=== PATIENT | male | born 1955 | race Hispanic/Latino ===

== ENCOUNTER 2016-08-23 19:06 | Emergency (ER) | payer SELFPAY ==
[2016-08-23 20:14] LABS: #Basophils 0.1 thou/uL (0.0-0.2); #Eosinphils 0.1 thou/uL (0.0-0.7); #Lymphocytes 1.7 thou/uL (1.20-3.40); #Monocytes 0.9 thou/uL (0.11-0.59); #Neutrophils 4.5 thou/uL (1.40-6.50); %Basophils 1.6 % (0.0-1.0); %Lymphocytes 23.5 % (21.0-51.0); %Monocytes 12.3 % (0.0-10.0); %Neutrophils 60.5 % (42.0-75.0); Hemoglobin 13.9 g/dL (14.0-18.0); Mean Corpuscular HGB CONC 34.2 g/dL (32.0-36.0); Mean Corpuscular Hemoglobin 28.2 pg (27.0-31.0); Mean Corpuscular Volume 82.5 fl (80.0-94.0); Platelet Count 189 thou/uL (130-400); RBC Distribution Width 11.2 % (11.5-14.5); Red Blood Cell (RBC) Count 4.91 mill/uL (4.70-6.10); White Blood Cell (WBC) Count 7.4 thou/uL (4.8-10.8)
[2016-08-23 20:29] LABS: ALT (SGPT) 23 U/L (0-55); AST (SGOT) 19 U/L (5-34); Albumin 4.2 g/dL (3.4-4.8); Alkaline Phosphatase 83 U/L (40-150); Anion Gap 19 mmol/L (10-20); BUN (Urea Nitrogen) 14 mg/dL (8.4-25.7); Bilirubin, Total 0.3 mg/dL (0.2-1.2); Calc. Creatinine Clearance 0 mL/min (70-130); Calcium 9.5 mg/dL (7.8-10.44); Carbon Dioxide 23 mmol/L (23-31); Chloride 101 mmol/L (98-107); Estimated GFR-MDRD 90; Globulin 2.9 g/dL (2.4-3.5); Glucose 109 mg/dL (80-115); Potassium 3.3 mmol/L (3.5-5.1); Protein, Total 7.1 g/dL (5.8-8.1); Sodium 140 mmol/L (136-145)
[2016-08-23 20:31] LABS: CKMB 1.3 ng/mL (0-6.6); Troponin I Less than 0.010 ng/mL (< 0.028)
--- NOTE | 2016-08-23 20:45 | RAD ---
PORTABLE CHEST ONE VIEW: 08/23/16 at 7:50 p.m. HISTORY: Chest palpitations. FINDINGS: Comparison made to exam of 07/11/13. The heart size is upper limits of normal. The lungs are expanded without focal areas of consolidatio n or pneumothorax, vanessa pulmonary edema or pleural effusions. IMPRESSION: No radiographic evidence of acute cardiopulmonary process. POS: [facility]
--- NOTE | 2016-08-23 21:05 | ERRECORD ---
[facility] EMERGENCY RECORD HPI PALPITATIONS (20:29 BPIC) CHIEF COMPLAINT: Patient presents for evaluation of palpitations. HISTORIAN: History provided by patient, one hour prior to arrival in the ED, the patient had palpitations and sweating for 15 minutes similar to an episode that he had 2 years ago when he had to get stents placed in his heart. symptoms have currently resolved. pt takes aspirin daily. ROS (19:20 BPIC) CONSTITUTIONAL: Negative constitutional review of systems, Historian denies chills, denies fever. EYES: Negative eye review of systems. ENT: Negative ears, nose, throat review of systems. CARDIOVASCULAR: Historian reports palpitations, denies chest pain. RESPIRATORY: Negative respiratory review of systems, Historian denies cough, denies shortness of breath. GI: Negative gastrointestinal review of systems, Historian denies abdominal pain, denies constipation, denies diarrhea. SKIN: Negative skin review of systems. NEUROLOGIC: Negative neurologic review of systems. ENDOCRINE: Negative endocrine review of systems. HEMO/LYMPHATIC: Normal hematologic/lymphatic system review. PSYCHIATRIC: Negative psychiatric review of systems. NOTES: All other ROS is negative except as listed in HPI. PAST MEDICAL HISTORY MEDICAL HISTORY: Past medical history includes cardiac history, coronary artery disease, Past medical history includes history of diabetes, endocrine disease. hypothyroidism, Past medical history includes history of hypertension. (SunAug 23, 2016 19:17 MDEB) MALE SURGICAL HISTORY: L INGUINAL HERNIA CARDIAC STENTS. (SunAug 23, 2016 19:17 MDEB) SOCIAL HISTORY: Patient drinks socially, Patient denies drug use, Patient has no smoking history. (SunAug 23, 2016 19:17 MDEB) NOTES: I have reviewed and agree with the PMH/PSxH/FamHx/SocHx obtained by the nurse. (19:20 BPIC) KNOWN ALLERGIES No Known Allergies (Unconfirmed) No Known Drug Allergies (Unconfirmed) CURRENT MEDICATIONS No recorded medications VITAL SIGNS (19:13 MDEB) VITAL SIGNS: BP: 170/72, Pulse: 85, Resp: 20, Temp: 97.6 (Tympanic), Pain: 0, O2 sat: 97 on Room Air, Time: 08/23/2016 19:13. &a-1R&a+25V*p+0X*h2461L*c202B*c15G*c2P*p-0X&a-25V&a+1R Name: Ashwin Juarez : 1955 M61 MedRec: [id number] AcctNum: [id number] Prepared: SunAug 23, 2016 21:22 by Interface Page 1 of 3 pMD [facility] EMERGENCY RECORD PHYSICAL EXAM (19:20 BPIC) CONSTITUTIONAL: Vital signs reviewed, Patient appears non toxic, Patient alert and oriented to person, place and time, Pt is in no apparent distress. HEAD: Head exam included findings of head atraumatic, normocephalic. EYES: Eye exam included findings of eyelids normal to inspection, Pupils equally round and reactive to light, Extraocular muscles intact. ENT: ENT exam normal, Nose exam normal, no nasal deformity, no bleeding from nares, Pharynx exam normal, Mouth exam normal, mucous membranes moist. NECK: Neck exam included findings of normal range of motion, Trachea midline. RESPIRATORY CHEST: Respiratory and chest exam normal, Breath sounds clear, No wheezing, No rales, Chest exam included findings of chest movement symmetrical, Chest expansion equal. CARDIOVASCULAR: Cardiovascular assessment normal, Cardiovascular exam included findings of heart rate regular rate and rhythm, Heart sounds normal. ABDOMEN MALE: Abdominal exam included findings of abdomen nontender, Bowel sounds normal, no mass, no pulsatile masses, no peritoneal signs, no rigidity, no guarding, no rebound. BACK: Back exam included findings of normal inspection, range of motion normal, no costovertebral angle tenderness. UPPER EXTREMITY: Upper extremity exam included findings of inspection normal, Range of motion normal. LOWER EXTREMITY: Lower extremity exam included findings of inspection normal, Range of motion normal. NEURO: Neuro exam findings include patient oriented to person, place and time, Speech normal, no focal motor deficits, no focal sensory deficits. SKIN: Skin exam included findings of skin warm, dry, and normal in color. LYMPHATIC: Lymphatic exam normal. PSYCHIATRIC: Psychiatric exam included findings of patient oriented to person place and time, Normal affect. EKG INTERPRETATION (20:36 BPIC) 12 LEAD EKG INTERPRETATION: 12 lead EKG shows normal sinus rhythm, Interpretation: normal EKG, Conduction normal, ST segments normal, T waves normal, Clinical impression: Normal EKG. DOCTOR NOTES (20:43 BPIC) NOTES: Patient presents with atypical chest pain. Patient currently improved. Risk factors for PE, ACS, dissection all evaluated. Based on the history, exam, risk factor evaluation, and testing done here, I feel that patient is at low risk for dangerous etiologies such as PE, PTX, ACS, dissection. Other DDX considered &a-1R&a+25V*p+0X*i8649H*c202B*c15G*c2P*p-0X&a-25V&a+1R Name: Ashwin Juarez : 1955 M61 MedRec: [id number] AcctNum: [id number] Prepared: SunAug 23, 2016 21:22 by Interface Page 2 of 3 pMD [facility] EMERGENCY RECORD includes pericarditis, pleurisy, costochondritis, chest wall pain, anxiety, GERD, hiatal hernia. I have encouraged the patient to arrange quick follow up and have advised of warning signs that should prompt more immediate return for evaluation. PROBLEM LIST No recorded problems DIAGNOSIS (20:43 BPIC) FINAL: PRIMARY: Palpitations. PRESCRIPTION No recorded prescriptions DISPOSITION PATIENT: Disposition Type: Discharge, Disposition: *Discharge Home, Condition: Good. (20:43 BPIC) Patient left the department. (20:52 MDEB) Villatoro: BPIC=MD Kelly, Skip GOODEEB=EDGARDO Hamlin, Vandana &a-1R&a+25V*p+0X*e4434G*c202B*c15G*c2P*p-0X&a-25V&a+1R Name: Ashwin Juarez : 1955 M61 MedRec: [id number] AcctNum: [id number] Prepared: SunAug 23, 2016 21:22 by Interface Page 3 of 3 pMD MTDD
--- NOTE | 2016-08-23 21:09 | PICIS ---
[facility] EMERGENCY RECORD TRIAGE (SunAug 23, 2016 19:17 MDEB) PATIENT: NAME: Ashwin Juarez, AGE: 61, GENDER: male, : Sun1955, TIME OF GREET: SunAug 23, 2016 19:07, PREFERRED LANGUAGE: [place], RACE: or , ETHNICITY: or , ECODE BILLING MAP: [facility], Zip Code: [address], KG WEIGHT: 86.18, PHONE: , , , PERSON ID: [id number], PCP: Misael GIFFORD. (SunAug 23, 2016 19:17 MDEB) TRIAGE NOTES: PALPITATIONS WITH DIAPHORESIS, WEAKNESS. (SunAug 23, 2016 19:17 MDEB) COMPLAINT: NOT FEELING WELL. (SunAug 23, 2016 19:17 MDEB) ADMISSION: URGENCY: 3 Urgent, ADMISSION SOURCE: Home, TRANSPORT: Walk-in, BED: TRIAGE. (SunAug 23, 2016 19:17 MDEB) TRIAGE SCREENING: Patient denies suicidal ideation, Patient denies presence of domestic violence. (SunAug 23, 2016 19:17 MDEB) PROVIDERS: TRIAGE NURSE: Vandana Hamlin RN. (SunAug 23, 2016 19:17 MDEB) VITAL SIGNS: BP 170/72, Pulse 85, Resp 20, Temp 97.6, (Tympanic), Pain 0, O2 Sat 97, on Room Air, Time 08/23/2016 19:13. (19:13 MDEB) PREVIOUS VISIT ALLERGIES: No Known Drug Allergies. (SunAug 23, 2016 19:17 MDEB) KNOWN ALLERGIES No Known Allergies (Unconfirmed) No Known Drug Allergies (Unconfirmed) CURRENT MEDICATIONS No recorded medications VITAL SIGNS (19:13 MDEB) VITAL SIGNS: BP: 170/72, Pulse: 85, Resp: 20, Temp: 97.6 (Tympanic), Pain: 0, O2 sat: 97 on Room Air, Time: 08/23/2016 19:13. NURSING ASSESSMENT: CARDIOVASCULAR (19:31 MDEB) CONSTITUTIONAL: Patient arrives ambulatory, Gait steady, History obtained from patient, Patient appears comfortable, Patient cooperative, Patient alert, Oriented to person, place and time, Skin warm, Skin dry, Skin normal in color, Mucous membranes pink, Mucous membranes moist, Patient is well-groomed, Patient complains of PALPITATIONS WITH DIAPHORESIS, WEAKNESS. PAIN: Patient rates pain as 0 out of 10. CARDIOVASCULAR: Cardiovascular assessment findings include heart rate normal, Heart rhythm, sinus arrhythmia, Associated with diaphoresis, currently resolved, Associated with weakness, CONTINUES AT THIS TIME. RESPIRATORY/CHEST: Breath sounds clear, Respiratory assessment findings include respiratory effort easy, Respirations regular, Conversing normally, Neck and chest exam findings include trachea midline, Chest expansion equal, Chest movement symmetrical. NOTES: Emotional support needed and given, Patient tolerated &a-1R&a+25V*p+0X*w6548B*c202B*c15G*c2P*p-0X&a-25V&a+1R Name: Ashwin Juarez : 1955 M61 MedRec: [id number] AcctNum: [id number] Prepared: SunAug 23, 2016 21:28 by Interface Page 1 of 7 pMD [facility] EMERGENCY RECORD procedure well. SAFETY: Side rails up, Cart/Stretcher in lowest position, Family at bedside, Call light within reach, Hospital ID band on. NURSING PROCEDURE: DISCHARGE NOTE (20:48 MDEB) DISCHARGE: Patient discharged to home, ambulating without assistance, family driving, accompanied by other family member, Summary of Care printed/ provided, Patient requested and was provided an electronic copy of Discharge Instructions, Transition record given to patient, Discharge instructions given to patient, Discharge instructions given to SON, Above person(s) verbalized understanding of discharge instructions and follow-up care, Patient treated and evaluated by physician. BELONGINGS: Belongings remain with patient, Valuables remain with patient. NOTES: Emotional support needed and given, Patient tolerated procedure well. NURSING PROCEDURE: EKG CHART (19:41 MDEB) PATIENT IDENTIFIER: Patient actively involved in identification process, Patient's identity verified by patient stating name, Patient's identity verified by hospital ID bracelet. EKG: EKG indicated for complaint of palpitations, 12 lead EKG performed on the left chest. FOLLOW-UP: After procedure, EKG for interpretation given to Dr. CLAROS. NOTES: Emotional support needed and given, Patient tolerated procedure well. ORDER DETAILS Order Name: B type Natriuretic Peptide, Status: Active, Time: 19:43 08/23/2016, User: BPIC, - Ordered for: MD Claros Bryan, - Entered by: MD Claros Bryan - [facility] Aug 23, 2016 19:43, - Quantity: 1, Order Name: Cardiac Profile w/CKMB & Troponin - I, Status: Active, Time: 19:43 08/23/2016, User: BPIC, - Ordered for: MD Claros Bryan, - Entered by: MD Claros Bryan - [facility] Aug 23, 2016 19:43, - Quantity: 1, Order Name: CBC with Differential, Status: Active, Time: 19:43 08/23/2016, User: BPIC, - Ordered for: MD Claros Bryan, - Entered by: MD Claros Bryan - [facility] Aug 23, 2016 19:43, - Quantity: 1, Order Name: Comprehensive Metabolic Panel, Status: Active, Time: 19:43 08/23/2016, User: BPIC, - Ordered for: MD Claros Bryan, - Entered by: MD Claros Bryan - [facility] Aug 23, 2016 19:43, &a-1R&a+25V*p+0X*c4568S*c202B*c15G*c2P*p-0X&a-25V&a+1R Name: Ashwin Juarez : 1955 M61 MedRec: [id number] AcctNum: [id number] Prepared: SunAug 23, 2016 21:28 by Interface [address] [place] [address] EMERGENCY RECORD - Quantity: 1, Order Name: EKG 12 Lead in Emergency Room, Status: Active, Time: 19:43 08/23/2016, User: BPIC, - Ordered for: MD Claros Bryan, - Entered by: MD Claros Bryan - [facility] Aug 23, 2016 19:43, - Quantity: 1, Order Name: SALINE LOCK, Status: Done, Time: 19:44 08/23/2016, User: HIRO, - Ordered for: MD Claros Bryan, - Entered by: MD Claros Bryan - [facility] Aug 23, 2016 19:43, - Quantity: 1, Order Name: XR Chest 1 View Portable, Status: Active, Time: 19:43 08/23/2016, User: BPIC, - Ordered for: MD Claros Bryan, - Entered by: MD Claros Bryan - SunAug 23, 2016 19:43, - Quantity: 1. HPI PALPITATIONS (20:29 BPIC) CHIEF COMPLAINT: Patient presents for evaluation of palpitations. HISTORIAN: History provided by patient, one hour prior to arrival in the ED, the patient had palpitations and sweating for 15 minutes similar to an episode that he had 2 years ago when he had to get stents placed in his heart. symptoms have currently resolved. pt takes aspirin daily. ROS (19:20 BPIC) CONSTITUTIONAL: Negative constitutional review of systems, Historian denies chills, denies fever. EYES: Negative eye review of systems. ENT: Negative ears, nose, throat review of systems. CARDIOVASCULAR: Historian reports palpitations, denies chest pain. RESPIRATORY: Negative respiratory review of systems, Historian denies cough, denies shortness of breath. GI: Negative gastrointestinal review of systems, Historian denies abdominal pain, denies constipation, denies diarrhea. SKIN: Negative skin review of systems. NEUROLOGIC: Negative neurologic review of systems. ENDOCRINE: Negative endocrine review of systems. HEMO/LYMPHATIC: Normal hematologic/lymphatic system review. PSYCHIATRIC: Negative psychiatric review of systems. NOTES: All other ROS is negative except as listed in HPI. PAST MEDICAL HISTORY MEDICAL HISTORY: Past medical history includes cardiac history, coronary artery disease, Past medical history includes history of diabetes, endocrine disease. hypothyroidism, Past medical history includes history of hypertension. (SunAug 23, 2016 19:17 MDEB) &a-1R&a+25V*p+0X*o0946I*c202B*c15G*c2P*p-0X&a-25V&a+1R Name: Ashwin Juarez : 1955 M61 MedRec: [id number] AcctNum: [id number] Prepared: SunAug 23, 2016 21:28 by Interface Page 3 of 7 pMD [facility] EMERGENCY RECORD MALE SURGICAL HISTORY: L INGUINAL HERNIA CARDIAC STENTS. (SunAug 23, 2016 19:17 MDEB) SOCIAL HISTORY: Patient drinks socially, Patient denies drug use, Patient has no smoking history. (SunAug 23, 2016 19:17 MDDANIA) NOTES: I have reviewed and agree with the PMH/PSxH/FamHx/SocHx obtained by the nurse. (19:20 BPIC) PHYSICAL EXAM (19:20 BPIC) CONSTITUTIONAL: Vital signs reviewed, Patient appears non toxic, Patient alert and oriented to person, place and time, Pt is in no apparent distress. HEAD: Head exam included findings of head atraumatic, normocephalic. EYES: Eye exam included findings of eyelids normal to inspection, Pupils equally round and reactive to light, Extraocular muscles intact. ENT: ENT exam normal, Nose exam normal, no nasal deformity, no bleeding from nares, Pharynx exam normal, Mouth exam normal, mucous membranes moist. NECK: Neck exam included findings of normal range of motion, Trachea midline. RESPIRATORY CHEST: Respiratory and chest exam normal, Breath sounds clear, No wheezing, No rales, Chest exam included findings of chest movement symmetrical, Chest expansion equal. CARDIOVASCULAR: Cardiovascular assessment normal, Cardiovascular exam included findings of heart rate regular rate and rhythm, Heart sounds normal. ABDOMEN MALE: Abdominal exam included findings of abdomen nontender, Bowel sounds normal, no mass, no pulsatile masses, no peritoneal signs, no rigidity, no guarding, no rebound. BACK: Back exam included findings of normal inspection, range of motion normal, no costovertebral angle tenderness. UPPER EXTREMITY: Upper extremity exam included findings of inspection normal, Range of motion normal. LOWER EXTREMITY: Lower extremity exam included findings of inspection normal, Range of motion normal. NEURO: Neuro exam findings include patient oriented to person, place and time, Speech normal, no focal motor deficits, no focal sensory deficits. SKIN: Skin exam included findings of skin warm, dry, and normal in color. LYMPHATIC: Lymphatic exam normal. PSYCHIATRIC: Psychiatric exam included findings of patient oriented to person place and time, Normal affect. EVENTS TRANSFER: Triage to Emergency Triage. (SunAug 23, 2016 19:17 MDEB) Emergency Triage to Main ED -05. (19:17 MDEB) Removed from Emergency Main ED -05. (20:52 MDEB) &a-1R&a+25V*p+0X*g3628G*c202B*c15G*c2P*p-0X&a-25V&a+1R Name: Ashwin Juarez : 1955 [facility] [place] MedRec: [id number] AcctNum: [id number] Prepared: SunAug 23, 2016 21:28 by Interface Page 4 of 7 pMD [facility] EMERGENCY RECORD EKG INTERPRETATION (20:36 BPIC) 12 LEAD EKG INTERPRETATION: 12 lead EKG shows normal sinus rhythm, Interpretation: normal EKG, Conduction normal, ST segments normal, T waves normal, Clinical impression: Normal EKG. DOCTOR NOTES (20:43 BPIC) NOTES: Patient presents with atypical chest pain. Patient currently improved. Risk factors for PE, ACS, dissection all evaluated. Based on the history, exam, risk factor evaluation, and testing done here, I feel that patient is at low risk for dangerous etiologies such as PE, PTX, ACS, dissection. Other DDX considered includes pericarditis, pleurisy, costochondritis, chest wall pain, anxiety, GERD, hiatal hernia. I have encouraged the patient to arrange quick follow up and have advised of warning signs that should prompt more immediate return for evaluation. PROBLEM LIST No recorded problems DIAGNOSIS (20:43 BPIC) FINAL: PRIMARY: Palpitations. DISPOSITION PATIENT: Disposition Type: Discharge, Disposition: *Discharge Home, Condition: Good. (20:43 BPIC) Patient left the department. (20:52 MDEB) INSTRUCTION (20:44 BPIC) DISCHARGE: PALPITATIONS. SPECIAL: Thank you for choosing [facility] for your care today! Please follow up with your doctor in the next 2-3 days. Return to the emergency department with any emergent or worsening concerns. God Bless you!. PRESCRIPTION No recorded prescriptions IMAGING *EKG: Image captured from scanner. (20:16 MDEB) *DISCHARGE INSTRUCTIONS RECEIPT: Image captured from scanner. (20:49 MDEB) *SUPPLY CHARGE SHEET: Image captured from scanner. (20:49 MDEB) VITAL SIGNS: Image captured from scanner. (20:50 MDEB) ADMIN (21:13 BPIC) DIGITAL SIGNATURE: MD Claros Bryan. RESULTS LABORATORY: CBC with Differential Collection DT: SunAug 23, 2016 &a-1R&a+25V*p+0X*d5729F*c202B*c15G*c2P*p-0X&a-25V&a+1R Name: Ashwin Juarez : 1955 [facility] [place] MedRec: [id number] AcctNum: [id number] Prepared: SunAug 23, 2016 21:28 by Interface Page 5 of 7 pMD [facility] EMERGENCY RECORD 20:11, White Blood Cell (WBC) Count 7.4 thou/uL, Range (4.8-10.8), Red Blood Cell (RBC) Count 4.91 mill/uL, Range (4.70-6.10), *Hemoglobin 13.9 - L g/dL, Range (14.0-18.0), *Hematocrit 40.5 - L %, Range (42.0-52.0), Mean Corpuscular Volume 82.5 fl, Range (80.0-94.0), Mean Corpuscular Hemoglobin 28.2 pg, Range (27.0-31.0), Mean Corpuscular HGB CONC 34.2 g/dL, Range (32.0-36.0), *RBC Distribution Width 11.2 - L %, Range (11.5-14.5), Platelet Count 189 thou/uL, Range (130-400), Mean Platelet Volume 8.0 fL, Range (7.4-10.4), %Neutrophils 60.5 %, Range (42.0-75.0), %Lymphocytes 23.5 %, Range (21.0-51.0), *%Monocytes 12.3 - H %, Range (0.0-10.0), %Eosinophils 2.0 %, Range (0.0-10.0), *%Basophils 1.6 - H %, Range (0.0-1.0), #Neutrophils 4.5 thou/uL, Range (1.40-6.50), #Lymphocytes 1.7 thou/uL, Range (1.20-3.40), *#Monocytes 0.9 - H thou/uL, Range (0.11-0.59), #Eosinphils 0.1 thou/uL, Range (0.0-0.7), #Basophils 0.1 thou/uL, Range (0.0-0.2). (20:22 BPIC) Comprehensive Metabolic Panel Collection DT: SunAug 23, 2016 20:11, Sodium 140 mmol/L, Range (136-145), *Potassium 3.3 - L mmol/L, Range (3.5-5.1), Chloride 101 mmol/L, Range (98-107), Carbon Dioxide 23 mmol/L, Range (23-31), Anion Gap 19 mmol/L, Range (10-20), BUN (Urea Nitrogen) 14 mg/dL, Range (8.4-25.7), Creatinine 0.86 mg/dL, Range (0.7-1.3), Estimated GFR-MDRD 90 , Reference Range for Estimated GFR: Greater than 90, mL/min/1.73 m2 NOTE: The MDRD equation has not been validated for use, with the elderly (over 70 years of age), women, patients with, serious comorbid condition or persons with extremes of body size, muscle, mass, or nutritional status. , Glucose 109 mg/dL, Range (80-115), Calcium 9.5 mg/dL, Range (7.8-10.44), Bilirubin, Total 0.3 mg/dL, Range (0.2-1.2), Protein, Total 7.1 g/dL, Range (5.8-8.1), NOTE: Plasma values are generally 0.3 to 0.5 g/dL higher than serum values, due to the presence of fibrinogen. , Albumin 4.2 g/dL, Range (3.4-4.8), Globulin 2.9 g/dL, Range (2.4-3.5), Alb/Glob Ratio 1.4 g/dL, Range (1.2-2.2), Alkaline Phosphatase 83 U/L, Range (40-150), AST (SGOT) 19 U/L, Range (5-34), ALT (SGPT) 23 U/L, Range (0-55). (20:32 BPIC) B type Natriuretic Peptide Collection DT: SunAug 23, 2016 20:11, &a-1R&a+25V*p+0X*k2470V*c202B*c15G*c2P*p-0X&a-25V&a+1R Name: Ashwin Juarez : 1955 M61 MedRec: [id number] AcctNum: [id number] Prepared: SunAug 23, 2016 21:28 by Interface Page 6 of 7 pMD [facility] EMERGENCY RECORD B type Natriuretic Peptide 17.2 pg/mL, Range (0-100). (20:32 BPIC) Cardiac Profile w/CKMB & TropI Collection DT: SunAug 23, 2016 20:11, CKMB 1.3 ng/mL, Range (0-6.6), Troponin I Less than 0.010 ng/mL, Range (< 0.028), Reference Range , 0.00 - 0.028 ng/mL Negative 0.029 - 0.29 ng/mL , Indeterminate Greater or Equal to 0.3 ng/mL Strongly suggests ND , . (20:39 BPIC) Villatoro: BPIC=MD Kelly, Skip GOODEEB=EDGARDO Hamlin, Vandana &a-1R&a+25V*p+0X*c5464Q*c202B*c15G*c2P*p-0X&a-25V&a+1R Name: Ashwin Juarez : 1955 M61 MedRec: [id number] AcctNum: [id number] Prepared: SunAug 23, 2016 21:28 by Interface Page 7 of 7 pMD MTDD
== END 2016-08-23 20:48 | disposition home or self-care (01) ==
LOC: MADERS 19:06
DX: R00.2 Palpitations (principal); I25.10 Atherosclerotic heart disease of native coronary artery without angina pectoris; E11.9 Type 2 diabetes mellitus without complications; E03.9 Hypothyroidism, unspecified; I10 Essential (primary) hypertension
CPT/HCPCS: 71010; 80053; 82553; 83880; 84484; 85025; 93005

== ENCOUNTER 2020-11-02 08:46 | Outpatient (CLI) | payer SELFPAY | END 2020-11-02 08:47 | disposition home or self-care (01) | LOC: MADRAD 08:46 | PROVIDERS: ATTEND Family Medicine | DX: R07.9 Chest pain, unspecified (principal); R10.13 Epigastric pain | CPT/HCPCS: 71046 ==

== ENCOUNTER 2020-11-09 07:38 | Outpatient (CLI) | payer SELFPAY | END 2020-11-09 07:39 | disposition home or self-care (01) | LOC: MADRAD 07:38 | PROVIDERS: ATTEND Family Medicine | DX: R10.13 Epigastric pain (principal); R07.9 Chest pain, unspecified; K76.89 Other specified diseases of liver | CPT/HCPCS: 93975 ==